=== PATIENT | female | born 2000 | race Caucasian/White ===

== ENCOUNTER 2019-04-09 08:14 | Emergency (ER) | payer SELFPAY ==
[~2019-04-09] VITALS: Ht 152.4 cm; Wt 53.5 kg
[2019-04-09 08:23] VITALS: Ht 152.4 cm; Wt 53.5 kg
[2019-04-09 09:25] VITALS: BP 109/58
== END 2019-04-09 09:25 | disposition home or self-care (01) ==
LOC: ED 08:14
DX: K29.70 Gastritis, unspecified, without bleeding (principal)
CPT/HCPCS: Q0162